=== PATIENT | female | born 1975 | race Caucasian/White ===

== ENCOUNTER 2017-05-27 15:39 | Emergency (ER) | payer SELFPAY ==
[~2017-05-27] VITALS: Ht 157.5 cm; Wt 50.0 kg
[~2017-05-27 15:39] MED LIST: AZIT250T74 PO; MEDR4PAK3 PO
[2017-05-27 15:40] VITALS: BP 123/86; PULSE 117; RESP 16; TEMP 98.2; O2SAT 98
[2017-05-27 17:15] LABS: BILIRUBIN, URINE NEG (NEG); BLOOD, URINE NEG (NEG); GLUCOSE,URINE NEG (NEG); HYALINE CAST, URINE 1 /lpf (RARE); KETONE, URINE NEG (NEG); MUCUS URINE FEW /lpf (OCC); NITRITE,URINE NEG (NEG); SQUAMOUS EPITHELIAL CELL URINE 1 /hpf (0-5); URINE COLOR YELLOW (YELLW/STRAW); URINE LEUKOCYTE ESTERASE NEG (NEG)
[2017-05-27] MEDS ORDERED: KETOROLAC TROMETHAMINE 60 MG/2 ML (IM) VIAL IM ONE (17:30)
[2017-05-27] MEDS ORDERED: ROBA500T PO (17:31)
[2017-05-27] MEDS ORDERED: IBUP1TAB7 PO (17:31)
--- NOTE | 2017-05-27 17:54 | PD ---
HPI Chief Complaint: Back/ Neck Pain or Injury Time Seen by Provider: 16:05 Travel History International Travel<30 days: No Contact w/Intl Traveler<30days: No Traveled to known affect area: No History of Present Illness HPI 41-year-old female here with right low back pain 2 days. Denies injury or trauma. Pain is worse with movement and relieved with rest. She denies fever, chills, incontinence, saddle anesthesia, paresthesia or weakness of the extremities. Symptom severity is moderate. PFSH Past Medical History Medical History: Denies Significant Hx Immunizations Current: No ?: Not Past Surgical History Section: Yes Gynecologic Surgery: Yes ( 2006) Social History Alcohol Use: Yes (1-2 BEERS DAILY) Tobacco Use: Yes (1/2 PPD) Substance Use: No Allergies-Medications (Allergen,Severity, Reaction): Coded Allergies: No Known Allergies (Unverified , 09/11/15) Reported Meds & Prescriptions Reported Meds & Active Scripts Active Robaxin (Methocarbamol) 500 Mg Tab 500 Mg PO QID Ibuprofen 800 Mg Tab 800 Mg PO Q6HR PRN Medrol Dosepak (Methylprednisolone) 4 Mg Blaine 4 Mg PO DIRECTED TAKE DIRECTED Zithromax (Azithromycin) 250 Mg Tab 250 Mg PO DAILY 7 Days Review of Systems Except as stated in HPI: all other systems reviewed are Neg General / Constitutional: No: Fever Eyes: No: Visual changes HENT: No: Headaches Cardiovascular: No: Chest Pain or Discomfort Respiratory: No: Shortness of Breath Gastrointestinal: No: Abdominal Pain Genitourinary: No: Dysuria Physical Exam Narrative GENERAL: Alert and well-appearing female. No distress. SKIN: Warm and dry. HEAD: Normocephalic. EYES: No injection or drainage. NECK: Supple, trachea midline. CARDIOVASCULAR: Regular rate and rhythm RESPIRATORY: Breath sounds equal bilaterally. No accessory muscle use. GASTROINTESTINAL: Abdomen soft, non-tender, nondistended. MUSCULOSKELETAL: No cyanosis, or edema. BACK: Tenderness to the right lumbar paraspinous muscles. No midline spine tenderness. Without obvious deformity. No CVA tenderness. Data Data Last Documented VS Vital Signs Date Time Temp Pulse Resp B/P (MAP) Pulse Ox O2 Delivery O2 Flow Rate FiO2 05/27/17 17:47 05/27/17 15:40 98.2 117 16 98 Orders Orders Urinalysis - C+S If Indicated (05/27/17 16:40) Ketorolac Inj (Toradol Inj) (05/27/17 17:30) Labs Laboratory Tests Test 05/27/17 16:30 Urine Color YELLOW Urine Turbidity CLEAR Urine pH 5.0 Urine Specific Bath 1.009 Urine Protein NEG mg/dL Urine Glucose (UA) NEG mg/dL Urine Ketones NEG mg/dL Urine Occult Blood NEG Urine Nitrite NEG Urine Bilirubin NEG Urine Urobilinogen LESS THAN 2.0 MG/DL Urine Leukocyte Esterase NEG Urine RBC 1 /hpf Urine WBC 2 /hpf Urine Squamous Epithelial Cells 1 /hpf Urine Hyaline Casts 1 /lpf Urine Mucus FEW /lpf Microscopic Urinalysis Comment CULT NOT INDICATED MDM Medical Decision Making Medical Screen Exam Complete: Yes Emergency Medical Condition: Yes Interpretation(s) UA: No indication of infection Differential Diagnosis Lumbar strain, bilateral nephritis, nephrolithiasis Narrative Course 41-year-old female with right low back times one day. He has normal neurologic exam. UA is negative for infection. I do not suspect kidney stone. Symptom improvement after Toradol. Patient will be treated for lumbar strain Diagnosis Primary Impression: Lumbar strain Qualified Codes: S39.012A - Strain of muscle, fascia and tendon of lower back , initial encounter Referrals: Primary Care Physician Additional Instructions: Avoid heavy lifting and strenuous activity. Ibuprofen as needed for pain. Robaxin as needed for muscle spasm. Chart heat and/or ice for comfort. Scripts Methocarbamol (Robaxin) 500 Mg Tab 500 MG PO QID for Muscle Spasm, #12 TAB 0 Refills Prov: Phoebe Regalado 05/27/17 Ibuprofen (Ibuprofen) 800 Mg Tab 800 MG PO Q6HR Y for PAIN, #40 TAB 0 Refills Prov: Phoebe Regalado 05/27/17 Disposition: 01 DISCHARGE HOME Condition: Stable Phoebe Regalado May 27, 2017 17:54
== END 2017-05-27 18:08 | disposition home or self-care (01) ==
LOC: NEPK 15:39
DX: S39.012A Strain of muscle, fascia and tendon of lower back, initial encounter (principal); F17.200 Nicotine dependence, unspecified, uncomplicated
CPT/HCPCS: 81001; 96372; 99284; J1885